=== PATIENT | female | born 1960 | race Hispanic/Latino ===

== ENCOUNTER 2017-06-10 08:48 | Outpatient (CLI) | payer BC ==
[2017-06-10 09:39] LABS: Eosinophils % (Auto) 2.4 % (0.0-4.3); Hematocrit 41.4 % (30.3-42.9); Mean Corpuscular HGB Conc 34 % (30-34); Mean Corpuscular Hemoglobin 30 pg (28-32); Mean Corpuscular Volume 89 fl (79-97); Platelet Count 282 K/mm3 (140-440); Red Blood Count 4.65 M/mm3 (3.65-5.03); Red Cell Distribution Width 12.8 % (13.2-15.2); White Blood Count 5.5 K/mm3 (4.5-11.0)
[2017-06-10 09:41] LABS: Alanine Aminotransferase 24 units/L (7-56); Albumin 4.3 g/dL (3.9-5); Albumin/Globulin Ratio 1.5 %; Alkaline Phosphatase 69 units/L (35-129); Anion Gap 16 mmol/L; BUN/Creatinine Ratio 28; Blood Urea Nitrogen 17 mg/dL (7-17); Calcium 9.6 mg/dL (8.4-10.2); Carbon Dioxide 30 mmol/L (22-30); Chloride 99.2 mmol/L (98-107); Cholesterol 202 mg/dL (50-199); Glucose 92 mg/dL (65-100); HDL Cholesterol 64 mg/dL (40-59); LDL Cholesterol,Direct 112 mg/dL (50-130); Potassium 3.7 mmol/L (3.6-5.0); Sodium 141 mmol/L (137-145); Total Protein 7.1 g/dL (6.3-8.2); Triglycerides 132 mg/dL (2-149)
[2017-06-11 14:48] LABS: Vitamin D, 25-OH, Total 39 ng/mL (30-100)
== END 2017-06-10 08:49 | disposition home or self-care (01) ==
LOC: LAB 08:48
PROVIDERS: ATTEND Internal Medicine
DX: Z13.220 Encounter for screening for lipoid disorders (principal); I10 Essential (primary) hypertension; E03.8 Other specified hypothyroidism; E55.9 Vitamin D deficiency, unspecified
CPT/HCPCS: 36415; 80053; 80061; 82306; 82607; 82747; 84439; 84443; 85025; 86800

== ENCOUNTER 2017-07-01 09:36 | Outpatient (CLI) | payer BC ==
--- NOTE | 2017-07-01 11:25 | Mammography Report ---
BONE DENSITY STUDY: DEFINITIONS: BMD = Bone Mineral Density T-score = BMD related to mean peak bone mass of young adult (mean expressed in Standard Deviation) Z-score = Age matched BMD expressed in SD World Health Organization (WHO) Diagnostic Criteria Normal T-score > -1 SD Osteopenia T-score between -1 and -2.4 SD Osteoporosis T-score -2.5 SD or below FINDINGS: The weighted average BMD of lumbar spine L1-L4 is 0.867 with a T-score of -1.6. The weighted average BMD of hip is 0.859 with a T-score of -0.7. IMPRESSION: The patient's T-score is diagnostic for osteopenia and average relative risk for fracture. NOTE: BMD is not the only risk factor for fracture; also consider factors such as the patient's age, risk of falling, previous osteoporotic fracture, family history of osteoporotic fractures, current smoker, and low body weight. Parrish's triangle is a region of interest in femur, predominantly of trabecular bone. It is not a true anatomic site, and [facility] does not recommend its use clinically.
== END 2017-07-01 09:37 | disposition home or self-care (01) ==
LOC: MAMMO 09:36
PROVIDERS: ATTEND Internal Medicine
DX: M85.88 Other specified disorders of bone density and structure, other site (principal); E28.39 Other primary ovarian failure
CPT/HCPCS: 77080

== ENCOUNTER 2017-12-03 10:50 | Outpatient (CLI) | payer BC ==
--- NOTE | 2017-12-03 16:04 | Mammography Report ---
BILATERAL DIGITAL SCREENING MAMMOGRAM with CAD and DIGITAL BREAST TOMOSYNTHESIS (DBT) : 12/03/17 CLINICAL: Routine screening. COMPARISON:None available. However, she indicated that a prior mammogram was done in [place], [place]. FINDINGS: The breasts are heterogeneously dense, which may obscure small masses. Bilateral asymmetries require comparison with the prior mammogram or additional imaging. No architectural distortion or suspicious calcifications. IMPRESSION: Bilateral asymmetries requiring additional evaluation. BI-RADS CATEGORY: 0--Needs Additional Evaluation RECOMMENDATION: Comparison with the prior mammogram. We will attempt to obtain a prior mammogram and if one is not available, we will recall for additional imaging. COMMENT: Patient follow-up letters are generated by our [employer] application.
--- NOTE | 2017-12-03 16:04 | Mammography Report ---
BILATERAL DIGITAL SCREENING MAMMOGRAM with CAD and DIGITAL BREAST TOMOSYNTHESIS (DBT) : 12/03/17 CLINICAL: Routine screening. COMPARISON:None available. However, she indicated that a prior mammogram was done in [place], [place]. FINDINGS: The breasts are heterogeneously dense, which may obscure small masses. Bilateral asymmetries require comparison with the prior mammogram or additional imaging. No architectural distortion or suspicious calcifications. IMPRESSION: Bilateral asymmetries requiring additional evaluation. BI-RADS CATEGORY: 0--Needs Additional Evaluation RECOMMENDATION: Comparison with the prior mammogram. We will attempt to obtain a prior mammogram and if one is not available, we will recall for additional imaging. COMMENT: Patient follow-up letters are generated by our [employer] application.
== END 2017-12-03 10:51 | disposition home or self-care (01) ==
LOC: MAMMO 10:50
PROVIDERS: ATTEND Obstetrics & Gynecology
DX: Z12.31 Encounter for screening mammogram for malignant neoplasm of breast (principal)
CPT/HCPCS: 77063; 77067

== ENCOUNTER 2018-01-18 12:32 | Outpatient (CLI) | payer BC ==
--- NOTE | 2018-01-20 09:35 | Ultrasound Report ---
BILATERAL BREAST ULTRASOUND: 01/18/18 12:32:00 CLINICAL: Recalled to evaluate bilateral asymmetries identified only on tomosynthesis views. COMPARISON: 12/03/17 screening mammogram. FINDINGS: Ultrasound of both breasts (including all four quadrants and the retroareolar area) was performed. An oval slightly irregular complex cyst versus solid nodule in the right breast at 7 o'clock 3 cm from the nipple measures 5 x 4 x 4 mm and appears to correlate with the asymmetry identified on the right CC tomogram. And in retrospect, there appears to be a correlating density on MLO tomosynthesis images. It does not correlate with the upper asymmetry on the MLO tomosynthesis images but after further consideration I am less concerned about the upper asymmetry being a significant finding. Ultrasound of the left breast demonstrates a solid oval smooth isoechoic mass with posterior enhancement at 11 o'clock 7 cm from the nipple. It measures 6 x 5 x 3 mm and correlates with the density on both CC and MLO tomosynthesis images. IMPRESSION: 1. A complex cyst versus solid 5 by 4 x 4 mm mass of the right breast at 7 o'clock 3 cm from the nipple. 2. No ultrasound finding to correlate with the upper right asymmetry on MLO tomosynthesis. However, this is probably a benign finding. 3. A solid 6 mm left breast mass at 11 o'clock 7 cm from the nipple. Morphology suggests a small benign fibroadenoma. RECOMMENDATION: 1. Ultrasound guided needle aspiration/biopsy of the complex cyst versus solid mass of the right breast at 7 o'clock 3 cm from the nipple. 2. Conservative management of the left breast mass at 11 o'clock 7 cm from the nipple or ultrasound guided needle core biopsy of the left breast. 3. Whichever option the patient chooses, recommend a six-month followup bilateral diagnostic mammogram with tomosynthesis (DBT). BI-RADS 4A--Mildly Suspicious
== END 2018-01-18 12:33 | disposition home or self-care (01) ==
LOC: US 12:32
PROVIDERS: ATTEND Obstetrics & Gynecology
DX: N63.22 Unspecified lump in the left breast, upper inner quadrant (principal)

== ENCOUNTER 2018-02-09 13:45 | Outpatient (CLI) | payer BC ==
--- NOTE | 2018-02-09 16:18 | Ultrasound Report ---
RIGHT BREAST ULTRASOUND: 02/09/18 13:45:00 CLINICAL: The patient presented for ultrasound guided biopsy of a complex cyst versus solid nodule at 7 o'clock 3 cm from the nipple. COMPARISON: 01/18/18 ultrasound and 12/03/17 mammogram with digital breast tomosynthesis (DBT) FINDINGS: Ultrasoundof the right breast was performed and demonstrated no mass or cyst to correlate with the previously described finding at 7 o'clock 3 cm from the nipple. IMPRESSION: Resolution of the previously identified complex cyst at 7 o'clock 3 cm from the nipple. BI-RADS 3 - - Probably Benign RECOMMENDATION: A followup right mammogram with digital breast tomosynthesis (DBT) in May or June 2018.
== END 2018-02-09 13:46 | disposition home or self-care (01) ==
LOC: SPVWC 13:45
PROVIDERS: ATTEND Surgery
DX: R92.8 Other abnormal and inconclusive findings on diagnostic imaging of breast (principal)

== ENCOUNTER 2018-03-08 08:15 | Outpatient (CLI) | payer BC ==
[2018-03-08 08:49] LABS: Alanine Aminotransferase 36 units/L (7-56); Albumin 4.3 g/dL (3.9-5); BUN/Creatinine Ratio 25; Blood Urea Nitrogen 15 mg/dL (7-17); Calcium 9.5 mg/dL (8.4-10.2); Chol/HDL Ratio 2.94 %; HDL Cholesterol 71 mg/dL (40-59); Hemolysis Index 5; LDL Cholesterol,Direct 141 mg/dL (50-130)
== END 2018-03-08 08:16 | disposition home or self-care (01) ==
LOC: LAB 08:15
DX: Z13.220 Encounter for screening for lipoid disorders (principal); I10 Essential (primary) hypertension; E03.8 Other specified hypothyroidism; E55.9 Vitamin D deficiency, unspecified
CPT/HCPCS: 36415; 80053; 80061; 82306; 82607; 82747; 84443

== ENCOUNTER 2018-11-15 15:02 | Outpatient (CLI) | payer BC ==
--- NOTE | 2018-11-15 15:40 | Mammography Report ---
BILATERAL DIGITAL SCREENING MAMMOGRAM with CAD: 11/15/18 15:02:00 CLINICAL: Routine screening. COMPARISON:07/11/18, 05/17/18 and 12/03/17 mammograms with tomosynthesis FINDINGS: The breasts are heterogeneously dense, which may obscure small masses. No mass, architectural distortion or suspicious calcifications. IMPRESSION: No mammographic evidence of malignancy. BI-RADS CATEGORY: 1 - - Negative RECOMMENDATION: Routine mammographic screening in one year. COMMENT: Patient follow-up letters are generated by our [employer] application.
== END 2018-11-15 15:03 | disposition home or self-care (01) ==
LOC: SPVWC 15:02
PROVIDERS: ATTEND Surgery
DX: Z12.31 Encounter for screening mammogram for malignant neoplasm of breast (principal)
CPT/HCPCS: 77067

== ENCOUNTER 2018-12-05 08:40 | Outpatient (CLI) | payer BC ==
[2018-12-05 10:42] LABS: Hematocrit 39.2 % (30.3-42.9); Hemoglobin 13.2 gm/dl (10.1-14.3); Mean Corpuscular HGB Conc 34 % (30-34); Mean Corpuscular Volume 89 fl (79-97); Platelet Count 306 K/mm3 (140-440); Red Cell Distribution Width 12.8 % (13.2-15.2)
[2018-12-05 10:53] LABS: Chol/HDL Ratio 3.18 %
== END 2018-12-05 08:41 | disposition home or self-care (01) ==
LOC: LAB 08:40
PROVIDERS: ATTEND Internal Medicine
DX: Z00.01 Encounter for general adult medical examination with abnormal findings (principal); I10 Essential (primary) hypertension; E03.9 Hypothyroidism, unspecified
CPT/HCPCS: 36415; 80061; 83036; 84443; 85027

== ENCOUNTER 2019-08-09 09:15 | Outpatient (CLI) | payer BC ==
[2019-08-09 10:09] LABS: Chol/HDL Ratio 3.25 %
[2019-08-12 15:32] LABS: Vitamin D, 25-OH, D2 <4 ng/mL
== END 2019-08-09 09:16 | disposition home or self-care (01) ==
LOC: LAB 09:15
PROVIDERS: ATTEND Internal Medicine
DX: E03.9 Hypothyroidism, unspecified (principal); E78.5 Hyperlipidemia, unspecified
CPT/HCPCS: 36415; 80061; 82306; 82607; 84443

== ENCOUNTER 2020-05-24 05:54 | Day surgery (SDC) | payer BC ==
[2020-05-24] MEDS ORDERED: BACTERIOSTATIC SODIUM CHLORIDE 0.9% 30 ML VIAL INFILTRATI ONE (05:56)
[2020-05-24] MEDS ORDERED: MIDAZOLAM 2 MG/2 ML INJ IV NR (06:00)
[2020-05-24] MEDS ORDERED: LACTATED RINGERS 1,000 ML IV SCH (06:00)
[2020-05-24] MEDS ORDERED: GABAPENTIN 300 MG CAP PO NR (06:00)
[2020-05-24] MEDS ORDERED: MAGNESIUM OXIDE 400 MG TAB PO SCH (06:00)
[2020-05-24] MEDS ORDERED: CELECOXIB 200 MG CAP PO NR (06:00)
[2020-05-24] MEDS ORDERED: ceFAZolin/STERILE WATER 2 GM/20 ML SYRINGE IV NR (07:09)
[2020-05-24] MEDS ORDERED: LIDOCAINE (1%) 10 MG/1 ML VIAL 20 ML MDV ONE (07:15)
[2020-05-24] MEDS ORDERED: BUPIVACAINE/PF (0.5%) 5 MG/1 ML 30 ML VIAL INFILTRATI ONE ×2 (07:15→07:56)
[2020-05-24] MEDS ORDERED: FAMOTIDINE 20 MG/2 ML INJ IV ONE ×2 (07:20→11:03)
--- NOTE | 2020-05-24 07:20 | Anesthesia Day of Surgery ---
Anesthesia Day of Surgery - Day of Surgery Patient Examined: Yes Patient H&P Reviewed: Yes Patient is NPO: Yes
--- NOTE | 2020-05-24 07:20 | Anesthesia Consultation ---
Anesthesia Consult and Med Hx Date of service: 05/24/20 - Airway Anesthetic Teeth Evaluation: Good, Crowns ROM Head & Neck: Adequate Mental/Hyoid Distance: Adequate Mallampati Class: Class III Intubation Access Assessment: Possibly Difficult - Pre-Operative Health Status ASA Pre-Surgery Classification: ASA2 Proposed Anesthetic Plan: General - Cardiovascular System Hx Hypertension: Yes (X 10YRS) - Central Nervous System Hx Back Pain: Yes Hx Psychiatric Problems: No - Endocrine Hx Liver Disease: Yes (gallstones) Hx Hypothyroidism: Yes - Other Systems Hx Alcohol Use: Yes Hx Substance Use: No
[2020-05-24] MEDS ORDERED: ROCURONIUM 50 MG/5 ML INJ IV ONE (07:25)
[2020-05-24] MEDS ORDERED: HYDROmorphone 1 MG/1 ML INJ ONE (07:25)
[2020-05-24] MEDS ORDERED: LIDOCAINE MPF (2%) 20 MG/1 ML VIAL 5 ML ONE (07:25)
[2020-05-24] MEDS ORDERED: propofoL 200 MG/20 ML VIAL IV ONE (07:25)
[2020-05-24] MEDS ORDERED: HYDROmorphone 1 MG/1 ML INJ IV PRN (07:30)
[2020-05-24] MEDS ORDERED: SODIUM CHLORIDE 0.9% IRR 1,500 ML BOTTLE IR ONE (07:56)
[2020-05-24] MEDS ORDERED: LIDOCAINE (1%) 10 MG/1 ML VIAL 20 ML MDV INFILTRATI ONE (07:56)
[2020-05-24] MEDS ORDERED: SODIUM CHLORIDE 0.9% IRRIG SOLN 2000 ML IR ONE (08:21)
[2020-05-24] MEDS ORDERED: ONDANSETRON 4 MG/2 ML INJ ONE (08:22)
[2020-05-24] MEDS ORDERED: dexAMETHasone 20 MG/5 ML VIAL ONE (08:22)
--- NOTE | 2020-05-24 09:16 | Short Stay Summary ---
Short Stay Documentation Date of service: 05/24/20 - History Principal diagnosis: symptomatic cholelithiasis H&P: obtained from office - Allergies and Medications Current Medications: Allergies No Known Allergies Allergy (Verified 05/16/20 11:47) Home Medications Medication Instructions Recorded Confirmed Last Taken Type Calcium Carbonate [Calcium 500 mg PO DAILY 05/16/20 05/16/20 05/23/20 History Carbonate 500MG TAB] Levothyroxine [Synthroid] 100 mcg PO QAM 05/16/20 05/24/20 05/24/20 04:50 History Losartan [Cozaar] 50 mg PO QDAY 05/16/20 05/16/20 05/23/20 History Magnesium Oxide [Magnesium] 400 mg PO DAILY 05/16/20 05/16/20 05/23/20 History Zinc Gluconate [Zinc] 50 mg PO DAILY 05/16/20 05/16/20 05/23/20 History cycloSPORINE [Restasis 0.05%] 1 drop OP BID 05/16/20 05/16/20 05/23/20 History hydroCHLOROthiazide [HCTZ] 25 mg PO QDAY 05/16/20 05/16/20 05/23/20 History Active Medications Cefazolin Sodium (Ancef/Sterile Water 2 Gm/20 Ml) 2 gm IV PREOP NR Stop: 05/24/20 23:59 Celecoxib (Celebrex) 200 mg PO PREOP NR Stop: 05/24/20 23:00 Last Admin: 05/24/20 06:35 Dose: 200 mg Documented by: Gabapentin (Gabapentin) 300 mg PO PREOP NR Stop: 05/24/20 23:00 Last Admin: 05/24/20 06:35 Dose: 300 mg Documented by: Hydromorphone HCl (Dilaudid) 0.5 mg IV Q10MIN PRN PRN Reason: Pain , Severe (7-10) Lactated Ringer's (Lactated Ringers) 1,000 mls @ 100 mls/hr IV DIRECT KOJO Stop: 05/24/20 23:59 Last Admin: 05/24/20 06:50 Dose: 100 mls/hr Documented by: Magnesium Oxide (Mag-Ox) 400 mg PO PREOP KOJO Stop: 05/24/20 23:00 Last Admin: 05/24/20 06:35 Dose: 400 mg Documented by: Midazolam HCl (Versed) 2 mg IV PREOP NR Stop: 05/24/20 23:00 Last Admin: 05/24/20 07:18 Dose: 2 mg Documented by: - Brief post op/procedure progress note Date of procedure: 05/24/20 Pre-op diagnosis: symptomatic cholelithiasis Post-op diagnosis: same Procedure: laparscopic cholecystectomy Anesthesia: GETA, local Findings: 1. Distended gallbladder with large stone at neck, chronic scarring at neck of GB 2. Omental adhesions to liver Surgeon: TILA ANDERS (Jackie Herrera, [facility]) Estimated blood loss: minimal Pathology: list (gallbladder) Specimen disposition: to lab Condition: stable - Hospital course Hospital course: Pt observed in PACU and discharged to home in stable condition when criteria met - Disposition Condition at discharge: Good Disposition: DC-01 TO HOME OR SELFCARE Short Stay Discharge Plan Activity: other (no heavy lifting for 2 weeks) Diet: low fat Wound: open to air, other (may shower tomorrow, pat incisions dry) Additional Instructions: SEE PRINTED DISCHARGE INSTRUCTIONS Follow up with: DAV MO MD [Primary Care Provider] - 7 Days TILA ANDERS DO [Staff Physician] - 14 Days Prescriptions: HYDROcodone/APAP 5-325 [[place] 5/325] 1 each PO Q6HR PRN #10 tablet PRN Reason: Pain , Severe (7-10)
[2020-05-24] MEDS ORDERED: HYDROcodone/ACETAMINOPHEN 5-325 MG TAB PO PRN (09:27)
[2020-05-24 09:46] VITALS: BP 121/59
[2020-05-24] MEDS ORDERED: ceFAZolin/Water 2 GM/20 ML 2 GM/20 ML SYRINGE IV ONE (11:03)
--- NOTE | 2020-05-24 11:36 | Operative Report ---
PREOPERATIVE DIAGNOSIS: Symptomatic cholelithiasis. POSTOPERATIVE DIAGNOSIS: Symptomatic cholelithiasis. PROCEDURE: Laparoscopic cholecystectomy. ANESTHESIA: General endotracheal anesthesia, local. FINDINGS: 1. Distended gallbladder with large stone at neck, chronic scarring at neck of gallbladder. 2. Omental adhesions to the liver. SURGEON: Hillary Parnell D.O. [employer] ASSOCIATE: GRABIEL Murillo. ESTIMATED BLOOD LOSS: Minimal. PATHOLOGY: Gallbladder. SPECIMEN DISPOSITION: Lab. CONDITION AT DISPOSITION: The patient is stable to PACU. HISTORY OF PRESENT ILLNESS AND INDICATIONS: The patient is a 59-year-old female who presented to the Surgery Clinic as a referral from Dr. Santiago for evaluation of upper abdominal pain. The patient was found to have gallstones on right upper quadrant ultrasound and her symptoms were consistent with symptomatic cholelithiasis. It was recommended the patient undergo a laparoscopic cholecystectomy. All risks, benefits and alternatives to the surgery were discussed with the patient and questions answered. Consent was obtained. PROCEDURE IN DETAIL: The patient was identified in the preoperative area, taken back to the operating room and placed on the operating table in supine position. After anesthesia was induced, the abdomen was prepped and draped in the usual sterile fashion. Timeout was performed. Local anesthetic was infiltrated into all skin incision sites. A supraumbilical incision was made using an 11 blade through which a Veress needle was inserted. The Veress needle position was confirmed using saline drop test and the abdomen insufflated to 15 mmHg. Once the abdomen was insufflated, the Veress needle was removed and a 5 mm Optiview trocar placed through this incision. The abdomen was inspected. There was no underlying injury to any of the abdominal structures. The patient was placed in reverse Trendelenburg and tilted to the left. The gallbladder was visualized in the right upper quadrant. An additional 12 mm subxiphoid and 2 right upper quadrant 5 mm trocars were placed under direct visualization. The gallbladder fundus was grasped and retracted cephalad and above the liver. Omental adhesions to the liver were divided using hook electrocautery. Infundibulum of the gallbladder was grasped and retracted laterally. There was a large stone at the neck of the gallbladder. The neck of the gallbladder at the area of the cystic duct and artery did show signs of chronic inflammation and scarring. The cystic duct and artery were then very meticulously dissected and skeletonized. These were the only two structures seen entering the gallbladder and the critical view was obtained. Cystic artery was very small and 1 clip was placed on the proximal aspect and 1 on the distal aspect and this was transected in between the clips using EndoShears. The cystic duct was short due to the chronic scarring in this area and therefore only 2 clips were able to be placed on the proximal aspect and one distally. The cystic duct was transected in between the clips using EndoShears. Both clips were completely across the cystic duct with no evidence of bile leakage from the area. The gallbladder was then dissected off the liver bed using hook electrocautery. It was placed into an EndoCatch bag and removed via the 12 mm port. The liver bed and gallbladder fossa were then inspected and hemostasis was carefully ensured. There was no evidence of bleeding or bile leakage seen. The 12 mm port fascia was then closed with a series of interrupted 0 Vicryl sutures using a Derrick-Chiquis device. The remainder of the ports were removed under direct visualization. The abdomen desufflated. Skin incisions were once again infiltrated with local anesthetic and skin approximated using 4-0 Monocryl subcuticular stitches and skin glue. At the end of the case, all sponge, instrument, sharp counts were correct x 2. The patient was awoken from anesthesia, extubated, and taken to PACU in stable condition. JOB# [id number] DORI/SHELIA
--- NOTE | 2020-05-24 14:29 | Post Anesthesia Evaluation ---
- Post Anesthesia Evaluation Patient Participated: Yes Airway Patent: Yes Stable Respiratory Function: Yes Nausea/Vomiting: No Temp > 96.8F: Yes Pain Manageable: Yes Adequeate Hydration: Yes Anesthesia Complications: No
[2020-05-24] MEDS ORDERED: KETOROLAC 30 MG/1 ML INJ ONE (15:12)
[2020-05-24] MEDS ORDERED: NEOSTIGMINE 10MG/10 ML INJ MDV ONE (15:12)
[2020-05-24] MEDS ORDERED: GLYCOPYRROLATE 0.4 MG/2 ML INJ ONE (15:12)
== END 2020-05-24 10:15 | disposition home or self-care (01) ==
LOC: OR 05:54
PROVIDERS: ATTEND Surgery
DX: K80.10 Calculus of gallbladder with chronic cholecystitis without obstruction (principal); Z20.828 Contact with and (suspected) exposure to other viral communicable diseases; K66.0 Peritoneal adhesions (postprocedural) (postinfection); E78.00 Pure hypercholesterolemia, unspecified; I10 Essential (primary) hypertension; M79.7 Fibromyalgia; M19.90 Unspecified osteoarthritis, unspecified site; E03.9 Hypothyroidism, unspecified; Z79.899 Other long term (current) drug therapy; Z98.890 Other specified postprocedural states; Z98.891 History of uterine scar from previous surgery; Z72.89 Other problems related to lifestyle; Z80.8 Family history of malignant neoplasm of other organs or systems
CPT/HCPCS: 36415; 47562; 84132; 88304; A4217; J0690; J1100; J1170; J1885; J2250; J2405; J2704; J2710; J7120; U0003

== ENCOUNTER 2020-07-30 08:10 | Outpatient (CLI) | payer BC ==
--- NOTE | 2020-07-30 10:06 | Mammography Report ---
DIGITAL SCREENING MAMMOGRAM WITH TOMOSYNTHESIS WITH CAD, 07/30/2020 CLINICAL INFORMATION / INDICATION: Routine Screening Mammography. TECHNIQUE: Digital bilateral 2D and 3D mammography with tomosynthesis was obtained in the craniocaud al and mediolateral oblique projections. Computer-Aided Detection (CAD) analysis was used for interp retation of this study. COMPARISON: 11/15/2018 FINDINGS: Breast Density: There are scattered areas of fibroglandular density. No dominant mass, suspicious calcifications, or architectural distortion in either breast. Right surgical changes and mild left nodularity are stable. IMPRESSION: No mammographic evidence of malignancy. Follow up recommendation: Routine yearly BI-RADS Category 2: Benign. A "normal" or negative report should not discourage follow up or biopsy of a clinically significant f inding. A written summary of these findings will be mailed to the patient. The patient will be entered into a mammography reporting system which will generate a reminder letter for the patient's next appointmen t at the appropriate interval. The [employer] recommends yearly mammograms starting at age 40 and continuing as l santa as a woman is in good health. Breast MRI is recommended for women with an approximate 20-25% or greater lifetime risk of breast cancer, including women with a strong family history of breast or ova jose cancer or who have been treated for Hodgkin's disease. Signer Name: Kavon Martinez MD Signed: 07/30/2020 10:01 AM Workstation Name: [id number]
== END 2020-07-30 08:11 | disposition home or self-care (01) ==
LOC: SPVWC 08:10
PROVIDERS: ATTEND Internal Medicine
DX: Z12.31 Encounter for screening mammogram for malignant neoplasm of breast (principal); N63.20 Unspecified lump in the left breast, unspecified quadrant
CPT/HCPCS: 77063; 77067

== ENCOUNTER 2021-04-24 09:42 | Outpatient (CLI) | payer BC ==
[2021-04-24 10:25] LABS: Basophils # (Auto) 0.1 K/mm3 (0.0-0.1); Eosinophils # (Auto) 0.3 K/mm3 (0.0-0.4); Hematocrit 42.1 % (30.3-42.9); Hemoglobin 14.3 gm/dl (10.1-14.3); Lymphocytes # (Auto) 1.4 K/mm3 (1.2-5.4); Lymphocytes % (Auto) 19.8 % (13.4-35.0); Mean Corpuscular HGB Conc 34 % (30-34); Mean Corpuscular Volume 90 fl (79-97); Monocytes # (Auto) 0.4 K/mm3 (0.0-0.8); Monocytes % (Auto) 6.2 % (0.0-7.3); Platelet Count 325 K/mm3 (140-440); Red Blood Count 4.69 M/mm3 (3.65-5.03); Red Cell Distribution Width 12.9 % (13.2-15.2)
[2021-04-24 10:34] LABS: Bacteria,Urine 1+ /HPF (Negative); Bilirubin,Urine NEG (Negative); Blood,Urine NEG (Negative); Color,Urine Yellow (Yellow); Mucus,Urine FEW /HPF; Protein,Urine <15 mg/dL mg/dL (Negative); Urobilinogen,Urine < 2.0 mg/dL (<2.0)
[2021-04-24 10:46] LABS: RBC,Urine < 1.0 /HPF (0.0-6.0)
[2021-04-24 11:28] LABS: Alanine Aminotransferase 35 units/L (7-56); Albumin 4.6 g/dL (3.9-5); Blood Urea Nitrogen 16 mg/dL (7-17); Chol/HDL Ratio 3.29 %; HDL Cholesterol 68 mg/dL (40-59); Hemolysis Index 0; LDL Cholesterol,Direct 153 mg/dL (50-130)
[2021-04-24 11:39] LABS: BUN/Creatinine Ratio 32
[2021-04-28 12:56] LABS: Vitamin D, 25-OH, D2 <4 ng/mL
== END 2021-04-24 09:43 | disposition home or self-care (01) ==
LOC: LAB 09:42
PROVIDERS: ATTEND Internal Medicine
DX: Z00.01 Encounter for general adult medical examination with abnormal findings (principal); Z13.220 Encounter for screening for lipoid disorders; E55.9 Vitamin D deficiency, unspecified; Z13.29 Encounter for screening for other suspected endocrine disorder
CPT/HCPCS: 36415; 80053; 80061; 81001; 82306; 83036; 84443; 85025

== ENCOUNTER 2021-09-16 06:42 | Day surgery (SDC) | payer BC ==
[2021-09-16] MEDS ORDERED: SODIUM CHLORIDE 0.9% 1000 ML 1,000 ML IV SCH (07:00)
[2021-09-16] MEDS ORDERED: WATER FOR IRRIG STERILE 1,000 ML BOTTLE ONE (07:12)
[2021-09-16] MEDS ORDERED: WATER FOR IRRIG STERILE 250 ML BOTTLE IR ONE (07:12)
--- NOTE | 2021-09-16 07:52 | Anesthesia Consultation ---
Anesthesia Consult and Med Hx Date of service: 09/16/21 - Airway Anesthetic Teeth Evaluation: Crowns ROM Head & Neck: Adequate Mental/Hyoid Distance: Adequate Mallampati Class: Class II Intubation Access Assessment: Probably Good - Pulmonary Exam CTA: Yes - Pre-Operative Health Status ASA Pre-Surgery Classification: ASA2 Proposed Anesthetic Plan: MAC - Pulmonary Hx Smoking: No Hx Respiratory Symptoms: No SOB: No Hx Sleep Apnea: No - Cardiovascular System Hx Hypertension: Yes (X 10YRS) Hx Coronary Artery Disease: No Hx Heart Attack/AMI: No Hx Angina: No - Central Nervous System Hx Neuromuscular Disorder: No Hx Seizures: No CVA: No Hx Back Pain: Yes Hx Psychiatric Problems: No - Gastrointestinal Hx Ulcer: No Hx Gastroesophageal Reflux Disease: No - Endocrine Hx Renal Disease: No Hx Liver Disease: Yes (gallstones) Hx Hypothyroidism: Yes - Hematic Hx Anemia: No - Other Systems Hx Alcohol Use: Yes Hx Substance Use: No Hx Obesity: Yes (BMI- 31.1kg) - Additional Comments Anesthesia Medical History Comments: Patient denied previous anesthesia complication.
--- NOTE | 2021-09-16 07:53 | Anesthesia Day of Surgery ---
Anesthesia Day of Surgery - Day of Surgery Patient Examined: Yes Patient H&P Reviewed: Yes Patient is NPO: Yes Beta Blockers: No Cardiac Clearance: No Pulmonary Clearance: No Artemio's Test: N/A
[2021-09-16] MEDS ORDERED: propofoL 200 MG/20 ML VIAL IV ONE ×2 (08:01→08:24)
[2021-09-16] MEDS ORDERED: LIDOCAINE MPF (2%) 20 MG/1 ML VIAL 5 ML ONE (08:01)
--- NOTE | 2021-09-16 08:35 | Short Stay Summary ---
Short Stay Documentation Date of service: 09/16/21 Narrative H&P: The patient presents for high risk screening colonoscopy for FH of colon cancer. Last study over 5 years ago. - History Past Medical History: hypertension, hypothyroidism Past Surgical History: cholecystectomy Social history: no significant social history, , lives with family - Allergies and Medications Current Medications: Allergies No Known Allergies Allergy (Verified 05/16/20 11:47) Home Medications Medication Instructions Recorded Confirmed Last Taken Type Calcium Carbonate [Calcium 500 mg PO DAILY 05/16/20 05/16/20 05/23/20 History Carbonate 500MG TAB] Levothyroxine [Synthroid] 100 mcg PO QAM 05/16/20 05/24/20 05/24/20 04:50 History Losartan [Cozaar] 50 mg PO QDAY 05/16/20 05/16/20 05/23/20 History Magnesium Oxide [Magnesium] 400 mg PO DAILY 05/16/20 05/16/20 05/23/20 History Zinc Gluconate [Zinc] 50 mg PO DAILY 05/16/20 05/16/20 05/23/20 History cycloSPORINE [Restasis 0.05%] 1 drop OP BID 05/16/20 05/16/20 05/23/20 History hydroCHLOROthiazide [HCTZ] 25 mg PO QDAY 05/16/20 05/16/20 05/23/20 History HYDROcodone/APAP 5-325 [[place] 1 each PO Q6HR PRN #10 tablet 05/24/20 Unknown Rx 5/325] Active Medications Sodium Chloride (Nacl 0.9% 1000 Ml) 1,000 mls @ 50 mls/hr IV DIRECT KOJO Stop: 09/16/21 21:00 - Physical exam General appearance: no acute distress, well-nourished Integumentary: no rash, no growths, no abnormal pigmentation HEENT: Atraumatic, PERRLA, EOMI, Mucous membr. moist/pink Lungs: Clear to auscultation, Normal air movement Breasts: deferred Heart: Regular rate, Normal S1, Normal S2, No murmurs Gastrointestinal: normoactive bowel sounds, no tenderness, no distended, no masses, no guarding, no organomegaly Female Genitourinary: deferred Rectal Exam: normal exam-external/orifice, no mass Extremities: no ischemia, pulses intact, pulses symmetrical, No edema, normal temperature, normal color, Full ROM Neurological: Normal gait, Normal speech, Strength at 5/5 X4 ext, Normal tone, Sensation intact, Cranial nerves 3-12 NL - Brief post op/procedure progress note Date of procedure: 09/16/21 Findings: see dictation Estimated blood loss: none Pathology: none Condition: stable - Disposition Condition at discharge: Good - Discharge Diagnoses (1) Family history of colon cancer Status: Acute Short Stay Discharge Plan Activity: other (No driving for 24 hours.) Weight Bearing Status: Full Weight Bearing Diet: regular Follow up with: DAV MO MD [Primary Care Provider] - 7 Days
--- NOTE | 2021-09-16 08:37 | Operative Report ---
Operative Report Operative Report: Date of procedure: 09/16/2021 Preprocedure diagnosis: Colon cancer screening for family history of colon canc er. Last study over 5 years ago Post procedure diagnosis: Scattered colonic diverticula Procedure: Colonoscopy to the cecum Endoscopist: Dr. Easton Anesthesia: Monitored anesthesia care per anesthesia department Estimated blood loss: 0 Medications: Monitored anesthesia care. See separate report by anesthesia for details. After careful discussion of the nature and purpose of the procedure as well as details of the technique risks benefits and alternatives the patient gave consent. Please see recent history and physical from the office. The patient was placed in the left lateral decubitus position and medicated per anesthesia. A rectal exam was performed sphincter tone was normal there were no masses palpable. The CrowdPlatn 570 scope was passed transanally and advanced under continuous direct vision without difficulty to the cecum. The colon was well prepared. The cecum was normal. The ascending colon was normal and on forward and retroflexed views. The transverse colon, descending colon, and sigmoid colon revealed scattered diverticula. The rectum was normal on forward and retroflexed views. The procedure was well-tolerated overall and the patient was observed in recovery. Conclusions: Scattered diverticula. No evidence of neoplasia. Plan: Repeat colonoscopy in 5 years. Signed electronically: Bruno Easton M.D.
[2021-09-16 10:22] VITALS: BP 111/70
--- NOTE | 2021-09-16 14:47 | Post Anesthesia Evaluation ---
- Post Anesthesia Evaluation Patient Participated: Yes Airway Patent: Yes Stable Respiratory Function: Yes Nausea/Vomiting: No Temp > 96.8F: Yes Pain Manageable: Yes Adequeate Hydration: Yes Anesthesia Complications: No Block Receding Appropriately: Not Applicable Patient on Ventilator: No
== END 2021-09-16 09:00 | disposition home or self-care (01) ==
LOC: GIO 06:42
PROVIDERS: ATTEND Internal Medicine Gastroenterology
DX: Z12.11 Encounter for screening for malignant neoplasm of colon (principal); K57.30 Diverticulosis of large intestine without perforation or abscess without bleeding; K63.89 Other specified diseases of intestine; I10 Essential (primary) hypertension; E03.9 Hypothyroidism, unspecified; E66.9 Obesity, unspecified; E78.00 Pure hypercholesterolemia, unspecified; M81.0 Age-related osteoporosis without current pathological fracture; M19.90 Unspecified osteoarthritis, unspecified site; Z79.899 Other long term (current) drug therapy; Z98.890 Other specified postprocedural states; Z80.0 Family history of malignant neoplasm of digestive organs; Z72.89 Other problems related to lifestyle; Z68.31 Body mass index [BMI] 31.0-31.9, adult
CPT/HCPCS: 45378; J2704; J3490; J7030; J7120; Q0162

== ENCOUNTER 2022-04-28 09:56 | Outpatient (CLI) | payer BC ==
[2022-04-28 12:12] LABS: Basophils # (Auto) 0.1 K/mm3 (0.0-0.1); Basophils % (Auto) 0.8 % (0.0-1.8); Eosinophils # (Auto) 0.1 K/mm3 (0.0-0.4); Eosinophils % (Auto) 1.6 % (0.0-4.3); Hemoglobin 13.8 gm/dl (10.1-14.3); Lymphocytes # (Auto) 1.2 K/mm3 (1.2-5.4); Lymphocytes % (Auto) 20.2 % (13.4-35.0); Mean Corpuscular HGB Conc 34 % (30-34); Mean Corpuscular Volume 90 fl (79-97); Monocytes # (Auto) 0.5 K/mm3 (0.0-0.8); Monocytes % (Auto) 7.7 % (0.0-7.3); Platelet Count 300 K/mm3 (140-440); Red Blood Count 4.46 M/mm3 (3.65-5.03); Red Cell Distribution Width 12.9 % (13.2-15.2)
[2022-04-28 12:25] LABS: Alanine Aminotransferase 30 units/L (7-56); Albumin 4.6 g/dL (3.9-5); Blood Urea Nitrogen 18 mg/dL (7-17); Calcium 9.9 mg/dL (8.4-10.2); Chol/HDL Ratio 3.81 %; HDL Cholesterol 59 mg/dL (40-59); Hemolysis Index 10; LDL Cholesterol,Direct 154 mg/dL (50-130)
[2022-04-28 12:28] LABS: BUN/Creatinine Ratio 30
== END 2022-04-28 09:57 | disposition home or self-care (01) ==
LOC: LABHHL 09:56
PROVIDERS: ATTEND Internal Medicine
DX: I10 Essential (primary) hypertension (principal); E78.5 Hyperlipidemia, unspecified; E03.9 Hypothyroidism, unspecified
CPT/HCPCS: 36415; 80053; 80061; 82306; 84443; 85025

== ENCOUNTER 2022-05-06 08:24 | Outpatient (CLI) | payer BC ==
--- NOTE | 2022-05-08 08:30 | Mammography Report ---
DIGITAL SCREENING MAMMOGRAM WITH TOMOSYNTHESIS WITH CAD, 05/06/2022 CLINICAL INFORMATION / INDICATION: Routine Screening Mammography. TECHNIQUE: Digital bilateral 2D and 3D mammography with tomosynthesis was obtained in the craniocaud al and mediolateral oblique projections. Computer-Aided Detection (CAD) analysis was used for interp retation of this study. COMPARISON: 07/30/2020, 11/15/2018, 07/11/2018 FINDINGS: Breast Density: There are scattered areas of fibroglandular density. No dominant mass, suspicious calcifications, or architectural distortion in either breast. There has been no significant interval change. IMPRESSION: No mammographic evidence of malignancy. Follow up recommendation: Routine yearly screening mammogram. BI-RADS Category 1: NEGATIVE A "normal" or negative report should not discourage follow up or biopsy of a clinically significant f inding. A written summary of these findings will be mailed to the patient. The patient will be entered into a mammography reporting system which will generate a reminder letter for the patient's next appointmen t at the appropriate interval. The [employer] recommends yearly mammograms starting at age 40 and continuing as l santa as a woman is in good health. Breast MRI is recommended for women with an approximate 20-25% or greater lifetime risk of breast cancer, including women with a strong family history of breast or ova jose cancer or who have been treated for Hodgkin's disease. Signer Name: Christine Ng MD Signed: 05/08/2022 8:25 AM Workstation Name: [email or web address]
== END 2022-05-06 08:25 | disposition home or self-care (01) ==
LOC: SPVWC 08:24
PROVIDERS: ATTEND Obstetrics & Gynecology
DX: Z12.31 Encounter for screening mammogram for malignant neoplasm of breast (principal)
CPT/HCPCS: 77063; 77067